=== PATIENT | male | born 1950 | race Caucasian/White ===

== ENCOUNTER → 2018-12-20 | Outpatient (CLI) | payer MEDICARE ==
[~2018-12-20] MED LIST: ALBU18HF INH; BUPR100T11 PO; CETI-158 PO; FLUT50BL INH
== END | disposition home or self-care (01) ==
LOC: STAR 13:27
PROVIDERS: ATTEND Surgery
DX: Z01.818 Encounter for other preprocedural examination (principal); K42.9 Umbilical hernia without obstruction or gangrene
CPT/HCPCS: 93005

== ENCOUNTER 2018-12-27 05:49 | Day surgery (SDC) | payer MEDICARE ==
[2018-12-20 13:51] VITALS: BP 145/96
[~2018-12-27] VITALS: Ht 167.6 cm; Wt 89.6 kg
[2018-12-27] MEDS ORDERED: BUPIVACAINE/PF-EPI 0.5% 1:200K ONE (10:42)
[2018-12-27] MEDS: LACTATED RINGERS 1,000 ML IV SCH ×2 (11:29→11:30)
[2018-12-27] MEDS ORDERED: MIDAZOLAM 1 MG/ML, 2ML ONE (11:59)
[2018-12-27] MEDS ORDERED: FENTANYL PF 100 MCG/2ML ONE ×2 (11:59→13:44)
[2018-12-27] MEDS ORDERED: GLYCOPYRROLATE 0.2MG/1ML, 5ML ONE (12:49)
[2018-12-27] MEDS ORDERED: ONDANSETRON 2MG/ML, 2ML ONE (12:49)
[2018-12-27] MEDS ORDERED: KETOROLAC 30 MG/1 ML ONE (12:49)
[2018-12-27] MEDS ORDERED: CEFAZOLIN 1,000 MG ONE (12:49)
[2018-12-27] MEDS ORDERED: NEOSTIGMINE 1 MG/ML, 10ML ONE (12:49)
[2018-12-27] MEDS ORDERED: DEXAMETHASONE 4 MG/ML, 1ML ONE (12:49)
[2018-12-27] MEDS ORDERED: ROCURONIUM 10 MG/ML,10ML ONE (12:49)
[2018-12-27] MEDS ORDERED: PROPOFOL 10 MG/ML, 20ML ONE (12:49)
[2018-12-27] MEDS ORDERED: MEPERIDINE/PF 25MG/0.5ML IVPush PRN (13:00)
[2018-12-27] MEDS ORDERED: hydrALAzine 20 MG/ML, 1ML IV PRN (13:00)
[2018-12-27] MEDS ORDERED: LORazepam 2 MG/ML, 1ML IVPush PRN (13:00)
[2018-12-27] MEDS ORDERED: LABETALOL 5MG/ML, 20ML IV PRN (13:00)
[2018-12-27] MEDS ORDERED: OXYcodone 5 MG/5 ML ORAL.SOL UDC PO PRN (13:00)
[2018-12-27] MEDS ORDERED: METOCLOPRAMIDE 5 MG/ML, 2ML IV PRN (13:00)
[2018-12-27] MEDS ORDERED: ACETAMINOPHEN 325 MG TABLET PO PRN (13:00)
[2018-12-27] MEDS ORDERED: OXYcodone 5 MG/5 ML ORAL.SOL UDC ONE (13:44)
[2018-12-27] MEDS: FENTANYL PF 100 MCG/2ML IV PRN ×2 (13:56→14:02)
[2018-12-27] MEDS ORDERED: HYDROmorphone 2 MG/ML, 1ML ONE (13:58)
[2018-12-27] MEDS: HYDROmorphone 2 MG/ML, 1ML IVPush PRN ×2 (14:00→14:08)
[2018-12-27] MEDS ORDERED: ACETAMINOPHEN 650 MG/20.3 ML UDC ONE (14:09)
[2018-12-27] MEDS ORDERED: ONDANSETRON 2MG/ML, 2ML IVPush PRN (16:00)
[2018-12-27] MEDS ORDERED: DIPHENHYDRAMINE 50 MG/ML, 1ML IVPush PRN (16:00)
== END 2018-12-27 18:25 | disposition home or self-care (01) ==
LOC: EDSEX → OUT 05:49
PROVIDERS: ATTEND Surgery
DX: K42.0 Umbilical hernia with obstruction, without gangrene (principal); J45.909 Unspecified asthma, uncomplicated; Z88.1 Allergy status to other antibiotic agents
CPT/HCPCS: 49653; C1781; J0690; J1100; J1170; J1885; J2250; J2405; J2704; J2710; J3010; J7120

== ENCOUNTER 2019-01-01 17:03 | Emergency (ER) | payer MEDICARE ==
[~2019-01-01] VITALS: Ht 167.6 cm; Wt 90.7 kg
--- NOTE | 2019-01-01 17:29 | NUR ---
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 STEADY UPON AMBULATION TO DC DESK.
--- NOTE | 2019-01-01 18:29 | NUR ---
PT RESTING IN [facility] LAB AND RAD RESULTS
[2019-01-01 18:42] LABS: BASOPHILS # (AUTO) 0.02 x10^3/uL (0-0.1); BASOPHILS % (AUTO) 0 % (0-1); EOSINOPHILS # (AUTO) 0.11 x10^3/uL (0-0.4); EOSINOPHILS % (AUTO) 1 % (1-7); LYMPHOCYTES # (AUTO) 0.65 x10^3/uL (1-3.4); LYMPHOCYTES % (AUTO) 5 % (22-44); MD NO; MEAN CORPUSCULAR HEMOGLOBIN 31.5 pg (27.0-34.8); MEAN CORPUSCULAR HGB CONC 34.1 g/dL (32.4-35.8); MEAN CORPUSCULAR VOLUME 92.3 fL (80-100); MEAN PLATELET VOLUME 7.4 fL (7.4-10.4); MONOCYTES # (AUTO) 0.69 x10^3/uL (0.2-0.8); MONOCYTES % (AUTO) 5 % (2-9); NEUTROPHILS # (AUTO) 11.66 x10^3/uL (1.8-6.8); NEUTROPHILS % (AUTO) 89 % (42-75); PLATELET COUNT 361 x10^3/uL (130-400); RED BLOOD COUNT 4.66 x10^6/uL (3.82-5.3); RED CELL DISTRIBUTION WIDTH 14.5 % (9.6-15.2)
[2019-01-01 18:51] LABS: ALBUMIN 3.7 g/dL (3.4-5.0); ANION GAP 7 mmol/L (5-15); CALCIUM 9.1 mg/dL (8.5-10.1); CHLORIDE 103 mmol/L (98-107)
[2019-01-01] MEDS ORDERED: MAGNESIUM CITRATE 300ML ORAL SOL PO ONE (19:00)
[2019-01-01] MEDS ORDERED: METHYLNALTREXONE 12 MG/0.6 ML SQ ONE (19:00)
[2019-01-01 19:03] LABS: ALANINE AMINOTRANSFERASE 35 U/L (12-78); ALKALINE PHOSPHATASE 89 U/L (45-117); BILIRUBIN,TOTAL 1.1 mg/dL (0.2-1.0); CREATININE 0.63 mg/dL (0.55-1.02); TOTAL PROTEIN 7.2 g/dL (6.4-8.2)
[2019-01-01] MEDS ORDERED: MAGNESIUM CITRATE 300ML ORAL SOL ONE (19:19)
[2019-01-01] MEDS ORDERED: METHYLNALTREXONE 12 MG/0.6 ML SYR SQ ONE (19:19)
--- NOTE | 2019-01-01 19:27 | NUR ---
PT MEDICATED PER MAR, SHOWN WHERE BATHROOM IS, PT DECLINING BEDSIDE COMMODE
--- NOTE | 2019-01-01 20:06 | NUR ---
PT HAS ATTEMPTED TO USE THE BATHROOM TWICE WITH NO SUCCESS
[2019-01-01] MEDS ORDERED: PINK LADY ENEMA 490 ML BOTTLE PR STA (20:52)
[2019-01-01] MEDS ORDERED: ONDANSETRON ODT 4 MG ONE (20:53)
[2019-01-01] MEDS ORDERED: ONDANSETRON ODT 4 MG PO ONE (21:00)
--- NOTE | 2019-01-01 21:08 | NUR ---
PT STATES SHE STILL CANNOT STOOL, AND NOW FEELING NAUSEOUS. MD NOTIFIED, ENEMA ORDERED FROM PHARMACY AND PT MEDICATED WITH ZOFRAN
[2019-01-01 21:36] VITALS: BP 146/76
== END 2019-01-01 22:18 | disposition home or self-care (01) ==
LOC: ED 18:48
DX: K56.0 Paralytic ileus (principal); J45.909 Unspecified asthma, uncomplicated
CPT/HCPCS: 36415; 74021; 80053; 83690; 85025; 96372; 99284; Q0162

== ENCOUNTER 2020-01-31 09:39 | Outpatient (CLI) | payer MEDICARE ==
[2020-01-31] MEDS ORDERED: ASCO10004 PO (10:22)
[2020-01-31] MEDS ORDERED: MELO15TA24 PO (10:22)
== END 2020-01-31 23:59 | disposition home or self-care (01) ==
LOC: STAR 09:39
PROVIDERS: ATTEND Dermatology
DX: Z01.818 Encounter for other preprocedural examination (principal); Z11.59 Encounter for screening for other viral diseases; M13.871 Other specified arthritis, right ankle and foot; M25.571 Pain in right ankle and joints of right foot
CPT/HCPCS: 93005; U0001

== ENCOUNTER 2020-02-05 05:12 | Day surgery (SDC) | payer MEDICARE ==
[~2020-02-05] VITALS: Ht 168.9 cm; Wt 94.1 kg
[~2020-02-05 05:12] MED LIST changes: +ASCO10004 PO; +MELO15TA24 PO
[2020-02-05] MEDS ORDERED: LACTATED RINGERS 1,000 ML IV SCH (06:09)
[2020-02-05 06:10] VITALS: BP 157/69
[2020-02-05] MEDS ORDERED: CHLORHEXIDINE 15 ML UDC ONE (06:14)
[2020-02-05] MEDS ORDERED: BUPIVACAINE/PF 0.5% ONE ×2 (06:24→08:00)
[2020-02-05] MEDS ORDERED: LIDOCAINE 1%, 20ML ONE (06:26)
[2020-02-05] MEDS ORDERED: CHLORHEXIDINE 15 ML UDC MM ONE (06:30)
[2020-02-05] MEDS ORDERED: GABAPENTIN 300 MG CAPSULE PO ONE (06:30)
[2020-02-05] MEDS ORDERED: ACETAMINOPHEN 500 MG TABLET PO ONE (06:30)
[2020-02-05] MEDS ORDERED: MIDAZOLAM 1 MG/ML, 2ML ONE (06:38)
[2020-02-05] MEDS ORDERED: FENTANYL PF 100 MCG/2ML ONE ×2 (06:58→08:52)
[2020-02-05] MEDS ORDERED: KETOROLAC 30 MG/1 ML ONE (07:09)
[2020-02-05] MEDS ORDERED: LIDOCAINE-MPF 2% ,5ML ONE (07:09)
[2020-02-05] MEDS ORDERED: SUCCINYLCHOLINE 20 MG/ML, 10ML ONE (07:12)
[2020-02-05] MEDS ORDERED: DEXAMETHASONE 4 MG/ML, 1ML ONE (07:12)
[2020-02-05] MEDS ORDERED: PROPOFOL 10 MG/ML, 20ML ONE (07:12)
[2020-02-05] MEDS ORDERED: CEFAZOLIN 1,000 MG ONE (07:12)
[2020-02-05] MEDS ORDERED: ONDANSETRON 2MG/ML, 2ML ONE (07:12)
[2020-02-05] MEDS ORDERED: EPHEDRINE 50 MG/ML, 1ML IVPush PRN (07:30)
[2020-02-05] MEDS ORDERED: LABETALOL 5MG/ML, 20ML IV PRN (07:30)
[2020-02-05] MEDS ORDERED: hydrALAzine 20 MG/ML, 1ML IV PRN (07:30)
[2020-02-05] MEDS ORDERED: MEPERIDINE/PF 25MG/0.5ML IVPush PRN (07:30)
[2020-02-05] MEDS ORDERED: PROMETHAZINE 25 MG/ML, 1ML IVPush PRN (07:30)
[2020-02-05] MEDS ORDERED: ONDANSETRON 2MG/ML, 2ML IVPush PRN (07:30)
[2020-02-05] MEDS ORDERED: HYDROmorphone 1 MG/ML, 1ML INJ IVPush PRN (07:30)
[2020-02-05] MEDS ORDERED: FENTANYL PF 100 MCG/2ML IV PRN (07:30)
[2020-02-05] MEDS ORDERED: OXYcodone 5 MG/5 ML ORAL.SOL UDC PO PRN (07:30)
== END 2020-02-05 13:16 | disposition home or self-care (01) ==
LOC: OUT 05:12
PROVIDERS: ATTEND Orthopaedic Surgery
DX: M21.41 Flat foot [pes planus] (acquired), right foot (principal); Z11.59 Encounter for screening for other viral diseases; M13.871 Other specified arthritis, right ankle and foot; M25.871 Other specified joint disorders, right ankle and foot; J45.909 Unspecified asthma, uncomplicated; Z79.1 Long term (current) use of non-steroidal anti-inflammatories (NSAID); Z79.899 Other long term (current) drug therapy; Z88.2 Allergy status to sulfonamides; Z82.61 Family history of arthritis
CPT/HCPCS: 20902; 27687; 28715; 64445; 64447; 73630; 87635; C1713; C1762; C1769; J0330; J0690; J1100; J1885; J2250; J2405; J2704; J3010; J7120; 76000; 93005; U0001-CS

== ENCOUNTER → 2020-11-04 | Outpatient (CLI) | payer MEDICARE ==
[~2020-11-04] MED LIST changes: +ASCO100018 PO; -ASCO10004 PO; +FLUT15.815 NS; +FLUT200B INH; +MULT-717 PO
== END | disposition home or self-care (01) ==
LOC: STAR 10:20
PROVIDERS: ATTEND Dermatology
DX: Z01.818 Encounter for other preprocedural examination (principal); M13.871 Other specified arthritis, right ankle and foot; M25.571 Pain in right ankle and joints of right foot; R94.31 Abnormal electrocardiogram [ECG] [EKG]; I51.7 Cardiomegaly; Z20.822 Contact with and (suspected) exposure to COVID-19
CPT/HCPCS: 93005; U0003

== ENCOUNTER 2020-11-08 05:21 | Day surgery (SDC) | payer MEDICARE ==
[~2020-11-08] VITALS: Ht 167.6 cm; Wt 92.7 kg
[2020-11-08 05:59] VITALS: BP 145/91
[2020-11-08] MEDS ORDERED: CHLORHEXIDINE 15 ML UDC PO ONE (06:00)
[2020-11-08] MEDS ORDERED: LACTATED RINGERS 1,000 ML IV SCH (06:00)
[2020-11-08] MEDS ORDERED: CHLORHEXIDINE 15 ML UDC ONE (06:07)
[2020-11-08] MEDS ORDERED: BUPIVACAINE/PF 0.5% ONE ×2 (06:11→10:04)
[2020-11-08] MEDS ORDERED: EPINEPHRINE 1 MG/ML, 1ML ONE (06:12)
[2020-11-08] MEDS ORDERED: VANCOMYCIN 1,000 MG ONE (06:12)
[2020-11-08] MEDS ORDERED: TRANEXAMIC ACID 100 MG/ML, 10ML ONE (06:15)
[2020-11-08] MEDS ORDERED: MIDAZOLAM 1 MG/ML, 2ML ONE (06:41)
[2020-11-08] MEDS ORDERED: DEXAMETHASONE 4 MG/ML, 1ML ONE (07:08)
[2020-11-08] MEDS ORDERED: FENTANYL PF 100 MCG/2ML ONE ×2 (07:16→08:56)
[2020-11-08] MEDS ORDERED: KETOROLAC 30 MG/1 ML ONE (07:25)
[2020-11-08] MEDS ORDERED: LIDOCAINE-MPF 2% ,5ML ONE (07:25)
[2020-11-08] MEDS ORDERED: OXYcodone 5 MG/5 ML ORAL.SOL UDC PO PRN (08:00)
[2020-11-08] MEDS ORDERED: LABETALOL 5MG/ML, 20ML IV PRN (08:00)
[2020-11-08] MEDS ORDERED: PROMETHAZINE 25 MG/ML, 1ML IVPush PRN (08:00)
[2020-11-08] MEDS ORDERED: EPHEDRINE 50 MG/ML, 1ML IVPush PRN (08:00)
[2020-11-08] MEDS ORDERED: FENTANYL PF 100 MCG/2ML IV PRN (08:00)
[2020-11-08] MEDS ORDERED: HYDROmorphone 1 MG/ML, 1ML INJ IVPush PRN (08:00)
[2020-11-08] MEDS ORDERED: ROPIvacaine/PF 0.2%, 100ML 550 ML (check volume) INJ ONE (08:00)
[2020-11-08] MEDS ORDERED: ONDANSETRON 2MG/ML, 2ML IVPush PRN (08:00)
[2020-11-08] MEDS ORDERED: ACETAMINOPHEN 325 MG TABLET PO PRN (08:00)
[2020-11-08] MEDS ORDERED: hydrALAzine 20 MG/ML, 1ML IV PRN (08:00)
[2020-11-08] MEDS ORDERED: PROPOFOL 10 MG/ML, 20ML ONE (08:01)
[2020-11-08] MEDS ORDERED: ONDANSETRON 2MG/ML, 2ML ONE (08:01)
[2020-11-08] MEDS ORDERED: CEFAZOLIN 1,000 MG ONE (08:01)
== END 2020-11-08 13:35 | disposition home or self-care (01) ==
LOC: OUT 05:21
PROVIDERS: ATTEND Orthopaedic Surgery
DX: M19.071 Primary osteoarthritis, right ankle and foot (principal); G89.18 Other acute postprocedural pain; F41.9 Anxiety disorder, unspecified; J45.909 Unspecified asthma, uncomplicated; Z79.1 Long term (current) use of non-steroidal anti-inflammatories (NSAID); Z79.899 Other long term (current) drug therapy; Z88.2 Allergy status to sulfonamides; Z88.8 Allergy status to other drugs, medicaments and biological substances; Z82.61 Family history of arthritis
CPT/HCPCS: 27702; 64415; 73600; C1713; C1769; C1776; J0690; J1100; J1885; J2250; J2405; J2704; J2795; J3010; J3370; J7120; 76000; J0171